=== PATIENT | female | born 1995 | race African-American/Black ===

== ENCOUNTER 2019-06-15 10:46 | Outpatient (CLI) | payer OTHER ==
--- NOTE | 2019-06-15 13:31 | ULT ---
OB ULTRASOUND: Date: 06/15/19 HISTORY: Single anatomy. FINDINGS: A single, live intrauterine gestation is seen with measurements corresponding to an estimated gestati onal age of 22 weeks and 2 days, and GINGER at 10/17/2019. The estimated weight measures 517 gm, o r 1 lb and 2 oz (86th percentile by Hadlock criteria). measurements are as follows: BPD: 5.38 cm, 22 weeks/3 days HC: 20.02 cm, 22 weeks/1 day AC: 17.41 cm, 22 weeks/2 days FL: 4.03 cm, 23 weeks/0 days heart rate measures 126 beats/minute. JONNY measures 12.6 cm. Placenta is posteriorly located without evidence of placenta previa. Cervical length measures 3.3 cm. A 3 vessel cord, cord insertion, kidneys, bladder, stomach, 4 chamber heart, lateral ventricles , cerebellum, spine, upper/lower extremities visualized. The face and nose/lips are not satisfactoril y visualized. The visualized parts demonstrate no definite anomalies. FINDINGS: Single, live intrauterine of 22 weeks and 2 days estimated gestational age, and GINGER at 02/2020. POS: [facility]
== END 2019-06-15 10:47 | disposition home or self-care (01) ==
LOC: SCSULT 10:46
PROVIDERS: ATTEND Nurse Practitioner
DX: Z34.82 Encounter for supervision of other normal pregnancy, second trimester (principal); Z3A.22 22 weeks gestation of pregnancy
CPT/HCPCS: 76805

== ENCOUNTER 2019-09-28 13:30 | Observation (INO) | payer OTHER ==
[2019-09-28 14:14] VITALS: BMI 41.0
[2019-09-28 15:00] LABS: Amnisure Test No Membranes Rupture (No Rupture)
[2019-09-28 15:01] LABS: Amnisure Internal Control QC ACCEPTABLE (ACCEPTABLE)
[2019-09-28] MEDS ORDERED: hydrALAZINE 20 MG/ML VIAL SLOW IVP PRN ×2 (15:14→17:38)
[2019-09-28] MEDS ORDERED: Butorphanol Tartrate 1 MG/ML VIAL SLOW IVP PRN (17:38)
[2019-09-28] MEDS ORDERED: Ondansetron PF 4 MG/2 ML Vial IVP PRN (17:38)
[2019-09-28 18:30] LABS: Hemoglobin 10.5 g/dL (12.0-16.0); Mean Corpuscular HGB CONC 34.4 g/dL (32.0-36.0); Mean Corpuscular Hemoglobin 29.8 pg (27.0-31.0); Mean Corpuscular Volume 86.7 fL (78.0-98.0); Mean Platelet Volume 7.7 fL (7.4-10.4); Platelet Count 206 thou/uL (130-400); RBC Distribution Width 11.8 % (11.5-14.5); Red Blood Cell (RBC) Count 3.54 mill/uL (4.20-5.40); White Blood Cell (WBC) Count 9.9 thou/uL (4.8-10.8)
[2019-09-28 19:08] LABS: HBSAg Index 0.21 S/CO (0-0.99); Hep B Surf Ag Non-Reactive S/CO (NonReactive); Syphilis Antibody Nonreactive (Nonreactive); Syphilis Antibody Index 0.08 S/CO (<1.00 Non-Reactive)
--- NOTE | 2019-09-29 10:31 | HP ---
PRIMARY OB: Dr. Israel Pittman. CHIEF COMPLAINT: Abdominal pain, pelvic pain. HISTORY OF PRESENT ILLNESS: The patient is a 24-year-old G4, P3 female with an intrauterine at 36 weeks and 5 days, presenting to Labor and Delivery with several week history of sharp pelvic pain that is becoming less tolerable. She also reports that she is having pains that come and go. She is unable to tell me how frequently or how intense. The patient is requesting induction of labor. She has been 4 cm dilated since earlier today at the office. She denies any vaginal bleeding or leakage of fluid. She reports that [place] three previous [place] were delivered at 37 weeks by induction of labor due to cervical dilation. PAST MEDICAL HISTORY: Negative. PAST SURGICAL HISTORY: Negative. ALLERGIES: NO KNOWN DRUG ALLERGIES. SOCIAL HISTORY: Denies drug, alcohol, or tobacco use. MEDICATIONS: vitamins. OB LABS: Unavailable at the time of dictation. REVIEW OF SYSTEMS: The patient reports denies any fever, recent illness, fall, headache, chest pain, shortness of breath, nausea, vomiting, diarrhea, constipation, hip problems, knee problems, or muscle weakness. She does have the pelvic pain that is sharp in nature and worse with activity and movement such as getting out of bed, rolling over in bed, getting out of the car, attending the children. Denies urinary urgency or frequency. PHYSICAL EXAMINATION: VITAL SIGNS: Blood pressure 135/88, heart rate of 96, respiratory rate of 18, temperature 98.2. GENERAL: She appears to be in no acute distress. She is alert, oriented, cooperative, pleasant to interact with. HEAD: Normocephalic and atraumatic. LUNGS: Clear to auscultation bilaterally. HEART: Regular rate and rhythm. ABDOMEN: Gravid and soft. She does have some tenderness to palpation with deviation of the uterus in the lower pelvic region. EXTREMITIES: Nontender, nonedematous. : Vulva is without masses, lesions, or erythema. Vagina is moist. No pulling present. Some discharge and visible mucus at the cervical os. Cervical exam initially is 4, 20% effaced, -2 station. Repeat exam 3 hours later is 5, 50% effaced, -2 station. heart tracing shows the fetus with a baseline in the 120s with moderate long-term variability, positive 15 x 15 accelerations, no decelerations. Tocometer showing contractions that appear to be irregular in nature, but anywhere from 4 to 6 minutes apart. Repeat exams at 8:00 and midnight show cervix unchanged. LABORATORY DATA: Blood type is A positive. Antibody screen is negative. RPR is nonreactive. Hepatitis B surface antigen nonreactive. AmniSure test is negative. Hemoglobin 10.5, hematocrit 30.7, platelets 206,000. ASSESSMENT AND PLAN: The patient is a 24-year-old female with an intrauterine at 36 weeks and 5 days, presenting with pelvic pain. The patient has been insisting on induction of labor as this has been a natural course for three previous pregnancies per her report. We did discuss that we would not be augmenting her labor at this time that we could keep her for observation and see if she enters labor on her own as she does have advanced cervical dilation. Cervix seems to change slowly over approximately 12 hours from 4 to 5 cm, 20% effaced to 60% effaced. We will watch overnight and re-evaluate in the morning. Fetus has a category [address] Pittman, primary OB, who will be assuming care. Job ID: [id number]
== END 2019-09-29 08:12 | disposition home health service (06) ==
LOC: L&D/OP 13:30 → L&D 09-29 00:51 → INTOOBSV 09-29 00:51
PROVIDERS: ADMIT Family Medicine; ATTEND Family Medicine
DX: O99.89 Other specified diseases and conditions complicating pregnancy, childbirth and the puerperium (principal); R10.2 Pelvic and perineal pain; Z3A.36 36 weeks gestation of pregnancy
CPT/HCPCS: 36415; 84112; 85027; 86780; 86850; 86900; 86901; 87340; 99285; G0378

== ENCOUNTER 2019-10-07 09:35 | Inpatient (IN) | payer OTHER ==
[2019-10-07] MEDS ORDERED: Ibuprofen 800 MG TAB PO PRN (10:24)
[2019-10-07] MEDS ORDERED: Promethazine HCl 25 MG/ML VIAL IM PRN ×3 (10:24→14:10)
[2019-10-07] MEDS ORDERED: Methylergonovine 0.2 MG/ML VIAL IM PRN (10:24)
[2019-10-07] MEDS ORDERED: HYDROcodone/Acetaminophen 5/325 mg Tablet PO PRN ×3 (10:24→14:10)
[2019-10-07] MEDS ORDERED: Lidocaine 1% (PF) 30 ML VIAL SC PRN (10:24)
[2019-10-07] MEDS ORDERED: Ondansetron PF 4 MG/2 ML Vial IVP PRN ×3 (10:24→14:10)
[2019-10-07] MEDS ORDERED: Misoprostol 200 MCG TAB PR PRN (10:24)
[2019-10-07] MEDS ORDERED: Butorphanol Tartrate 1 MG/ML VIAL SLOW IVP PRN (10:24)
[2019-10-07] MEDS ORDERED: NS / Oxytocin 40 units/1000ml 1,000 ML IV PRN (10:24)
[2019-10-07] MEDS ORDERED: hydrALAZINE 20 MG/ML VIAL SLOW IVP PRN ×2 (10:24→14:10)
[2019-10-07] MEDS ORDERED: Diphenoxylate HCl/Atropine Tablet PO PRN (10:24)
[2019-10-07] MEDS ORDERED: Carboprost 250 MCG/ML AMP IM PRN (10:24)
[2019-10-07 10:28] VITALS: BMI 40.8
[2019-10-07] MEDS ORDERED: NS w/ Oxytocin 10 units 500 ML IV SCH ×2 (10:30)
[2019-10-07] MEDS ORDERED: Lactated Ringer's 1,000 ML IV SCH (10:30)
[2019-10-07 10:54] LABS: Hemoglobin 10.8 g/dL (12.0-16.0); Mean Corpuscular HGB CONC 34.5 g/dL (32.0-36.0); Mean Corpuscular Hemoglobin 29.3 pg (27.0-31.0); Mean Corpuscular Volume 84.9 fL (78.0-98.0); Mean Platelet Volume 7.7 fL (7.4-10.4); Platelet Count 216 thou/uL (130-400); RBC Distribution Width 11.7 % (11.5-14.5); Red Blood Cell (RBC) Count 3.69 mill/uL (4.20-5.40); White Blood Cell (WBC) Count 7.8 thou/uL (4.8-10.8)
[2019-10-07 11:29] LABS: HBSAg Index 0.21 S/CO (0-0.99); Hep B Surf Ag Non-Reactive S/CO (NonReactive); Syphilis Antibody Nonreactive (Nonreactive); Syphilis Antibody Index 0.08 S/CO (<1.00 Non-Reactive)
[2019-10-07] MEDS ORDERED: Fentanyl 4 mcg/Bup 0.1% Cadd 100 ML ONE (12:03)
[2019-10-07] MEDS ORDERED: Naloxone HCl 0.4 mg/ml Vial IVP PRN ×2 (12:38)
[2019-10-07] MEDS ORDERED: diphenhydrAMINE 50 MG/ML VIAL IVP PRN (12:38)
[2019-10-07] MEDS ORDERED: Lactated Ringer's 500 ML IV PRN (12:38)
[2019-10-07] MEDS ORDERED: Acetaminophen 325 MG TAB PO PRN (12:38)
[2019-10-07] MEDS ORDERED: ePHEDrine/0.9% NaCl/PF SYRINGE 50 mg/10 ml SLOW IVP PRN (12:38)
[2019-10-07] MEDS ORDERED: Communication Order-Pharmacy FS SCH (12:45)
[2019-10-07] MEDS ORDERED: Fentanyl 4 mcg/Bupivacaine 0.1% Cassette 100 ML EPIDURAL SCH (12:45)
[2019-10-07] MEDS ORDERED: Milk Of Magnesia 30 ML UDCUP PO PRN (14:10)
[2019-10-07] MEDS ORDERED: Bisacodyl 10 MG SUPP PR PRN (14:10)
[2019-10-07] MEDS ORDERED: diphenhydrAMINE 25 MG CAP PO PRN (14:10)
[2019-10-07] MEDS ORDERED: Benzocaine-Menthol 82.5 ML CAN TOP PRN (14:10)
[2019-10-07] MEDS ORDERED: NS / Oxytocin 40 units/1000ml 1,000 ML IV SCH (14:15)
[2019-10-07] MEDS: Ferrous Sulfate 325 MG TAB PO SCH (18:09)
[2019-10-07] MEDS: Docusate Calcium (SURFAK) 240 MG CAP PO SCH (22:08)
[2019-10-07] MEDS: Ibuprofen 800 MG TAB PO SCH (22:08)
[2019-10-08] MEDS: Ibuprofen 800 MG TAB PO SCH ×2 (06:35→13:46)
[2019-10-08 08:31] VITALS: TEMP 97.9
[2019-10-08] MEDS: Ferrous Sulfate 325 MG TAB PO SCH (08:56)
[2019-10-08] MEDS ORDERED: Adacel (T-DAP) 0.5 ML SYRINGE IM ONE (09:00)
[2019-10-08] MEDS: Docusate Calcium (SURFAK) 240 MG CAP PO SCH (09:18)
[2019-10-08 12:11] VITALS: BP 127/76
== END 2019-10-08 16:15 | disposition home or self-care (01) | DRG 807 ==
LOC: L&D/OP 09:35 → L&D 09:43 → 3SW 17:09
PROVIDERS: ADMIT Family Medicine; ATTEND Family Medicine
PROC: 10E0XZZ Delivery of Products of Conception, External Approach (ICD-10-PCS; principal; 2019-10-07)
PROC: 10907ZC Drainage of Amniotic Fluid, Therapeutic from Products of Conception, Via Natural or Artificial Opening (ICD-10-PCS; 2019-10-07)
DX: O80 Encounter for full-term uncomplicated delivery (principal); Z37.0 Single live birth; Z3A.38 38 weeks gestation of pregnancy
CPT/HCPCS: 36415; 51702; 85027; 86780; 86850; 86900; 86901; 87340; J2590